=== PATIENT | female | born 1940 | race Caucasian/White ===

== ENCOUNTER 2023-07-07 00:38 | Day surgery (SDC) | payer MEDICARE, OTHER, SELFPAY ==
--- NOTE | 2023-07-05 15:43 | PC.NURSE ---
Report to the Outpatient Waiting Room, entrance under the green pavilion located off [facility], at time __0830 on date __07/07/23 . Planned Procedure Time: ___1030 . Time changes happen often and if your time is changed the preop area will call you the afternoon before. - You and your visitor will be asked to self-screen and do not enter if you have any COVID symptoms. - A mask is optional within the hospital at this time. Patients may have clear liquids (water, carbonated beverages, clear teas, apple juice) until 3 hours prior to surgery( 7:30 AM ) with a maximum of 20 ounces. - No food from midnight until time of surgery - Infants may have breast milk until 4 hours before surgery, infant formula 6 hours prior to surgery. - Children will be allowed to drink immediately following surgery. If applicable, please bring a bottle or sippy cup to assist with drinking. Juice, water, soda, and popsicles are readily available. For infants on formula, please bring formula the day of surgery. Pacifiers are allowed. Take the following medications with a SIP of water the morning of surgery: ___NONE DO NOT STOP ANY OF YOUR OTHER PRESCRIPTION MEDICATIONS PRIOR TO SURGERY ?EXCEPT THE FOLLOWING Medications to discontinue per physician ALL VITAMINS AND SUPPLEMENTS 3 DAYS PRE OP.STATES LAST DOSE 07/06/23 Please no make-up, nail german, hairspray, perfume, deodorant, or body powder the day of surgery. No jewelry (including any body piercings) or valuables the day of surgery, leave them at home. Please take a shower or bath the night before, or the morning of, surgery with an antibacterial soap. Wear comfortable, loose fitting clothing. Children are encouraged to wear pajamas. - Jewelry must be removed prior to entering the operating room. Rings and piercings that are not removed may be cut off. - The hospital will not accept responsibility for valuables. - Please leave all valuables, including medications, at home the day of surgery. If you are going home after surgery, a licensed truck driver teamster must drive you home. - NO public transportation without another adult if you receive anesthesia. - We recommend that an adult stay with you for 24 hours following discharge. - We also recommend that you do not drive, make important decision, drink alcoholic beverages, or take any drugs that were not prescribed by your health care provider for at least 24 hours after your discharge time. For Pediatric surgeries, we recommend two adults accompany the child home. Follow any additional instructions given to you from your surgeon. If you or anyone in your household have experienced Covid symptoms in the past week, please notify your surgeon or the nurse liaison at the phone number below for possible testing. Telephone instructions given to ____PATIENT and asked if any additional questions and then verbalized understanding. Patient advised to call surgeon office or pre surgery nurse liaison [phone] if any additional questions.
[2023-07-05 16:04] VITALS: BMI 27.4
--- NOTE | 2023-07-06 07:53 | PM.IMHP ---
H&P: HPI History of Present Illness Date/Time: 07/06/23 07:53 Chief Complaint: inability to extract pessary Narrative: 82-year-old pessary in place. Is unable to removed in the office. I will sedate her and remove Review of Systems Review of Systems: All systems reviewed & are unremarkable except as noted in HPI and below PMFSH Social History Social History Smoking status: Never smoker Living arrangements: alone Spiritual care concerns: No Meds Home Medications and Allergies Home Medications Medication Instructions Recorded Confirmed Type atorvastatin 20 mg tablet 20 mg PO DAILY 07/05/23 07/05/23 History cholecalciferol (vitamin D3) 25 25 mcg PO DAILY 07/05/23 07/05/23 History mcg (1,000 unit) tablet cyanocobalamin (vitamin B-12) 1,000 mcg PO DAILY 07/05/23 07/05/23 History 1,000 mcg tablet magnesium 250 mg tablet 250 mg PO DAILY 07/05/23 07/05/23 History omega-3 fatty acids 1,000 mg PO DAILY 07/05/23 07/05/23 History pantoprazole 40 mg tablet,delayed 40 mg PO DAILY 07/05/23 07/05/23 History release Allergies Allergy/AdvReac Type Severity Reaction Status Date / Time meperidine [From Demerol] AdvReac Nausea and Verified 07/05/23 15:34 Vomiting Exam Narrative: no acute distress normal breathing Assessment and Plan Assessment and plan (1) Foreign body in vagina: Code(s): T19.2XXA - Foreign body in vulva and vagina, initial encounter Status: Acute Assessment and Plan: will plan on extraction of pessary under sedation.
--- NOTE | 2023-07-07 07:11 | WPDHPUPDATE1 ---
History and Physical Update Update Date/Time: 07/07/23 07:11 History and Physical has been reviewed, including an updated exam of the patient. There are NO changes in the patient's condition. Risks, benefits, and alternatives have been discussed and questions answered. Patient agrees to proceed with procedure.
[2023-07-07 08:59] VITALS: BP 150/81; PULSE 94; RESP 16; TEMP 37; O2SAT 100
[2023-07-07] MEDS: LACTATED RINGERS 1,000 ML 30 ML IV CONT (09:17)
--- NOTE | 2023-07-07 09:50 | P.PNAN_ITS ---
Anes - Initial Pre Proc Eval Procedure: Operation Date: 07/07/23 10:30 Proposed Procedures p Pessary Removal - Geoff Barillas MD Date/Time: 07/07/23 09:50 Surgeon: Geoff Barillas MD Pre Op Diagnosis: Rectocele Patient Data Age: 82 Gender: F Height: 1.63 m Weight: 74.2 kg Last Vital Signs Temp 37.0 C 07/07/23 08:59 Pulse 94 07/07/23 08:59 Resp 16 07/07/23 08:59 BP 150/81 H 07/07/23 08:59 Pulse Ox 100 07/07/23 08:59 O2 Del Method Room Air 07/07/23 08:59 Allergies Allergy/AdvReac Type Severity Reaction Status Date / Time meperidine [From Demerol] AdvReac Nausea and Verified 07/07/23 08:51 Vomiting Home Medications Medication Instructions Recorded Confirmed Type atorvastatin 20 mg tablet 20 mg PO DAILY 07/05/23 07/05/23 History cholecalciferol (vitamin D3) 25 25 mcg PO DAILY 07/05/23 07/05/23 History mcg (1,000 unit) tablet cyanocobalamin (vitamin B-12) 1,000 mcg PO DAILY 07/05/23 07/05/23 History 1,000 mcg tablet magnesium 250 mg tablet 250 mg PO DAILY 07/05/23 07/05/23 History omega-3 fatty acids 1,000 mg PO DAILY 07/05/23 07/05/23 History pantoprazole 40 mg tablet,delayed 40 mg PO DAILY 07/05/23 07/05/23 History release Patient hx anesthesia problems: none Family hx anesthesia problems: none Results Review: All pre-operative results and documents have been reviewed as part of the pre- operative evaluation. [facility] Social History Social History Smoking status: Never smoker Living arrangements: alone Spiritual care concerns: No Anes - Eval Final PreProcedure Day of Procedure 07/07/23 09:50 Patient weight: overweight Heart: regular rate and rhythm Lungs: clear to auscultation Airway: Mallampati scale class II Neurological: alert and oriented Last oral intake: >/= 8 hours ASA classification: II Emergent: no Anesthetic plan: proceed Anesthesia type and monitoring: general GIVS and standard monitoring Results Review: All pre-operative results and documents have been reviewed as part of the pre- operative evaluation. Informed Consent: The patient's anesthetic plan and its attendant risks and benefits were discussed with the patient/family/POA. Questions were solicited and answers provided to the satisfaction of the patient/family/POA.
[2023-07-07 10:38] VITALS: BP 120/53; PULSE 84; RESP 16; O2SAT 96
--- NOTE | 2023-07-07 10:42 | P.OP_ITS ---
Procedure Note - Detailed Date of Procedure 07/07/23 Pre-op Diagnosis Rectocele Retained vaginal pessary Post-op Diagnosis Same Procedure Performed Exam under anesthesia Removal of vaginal foreign body Surgeon Geoff Barillas MD Anesthesia MAC Indications This will vaginal pessary device. She has had for several years. She does routine maintenance in the office. At last visit it was unable be removed. We plan on removing it in the operating room. She would like to keep it out Description of Procedure She was correctly identified. Informed consent obtained. She from the operating room. She was given MAC anesthesia. She was placed in dorsal lithot sonali position. She was prepped draped sterile fashion. Time-out performed. I grafts the knob of her Gellhorn pessary the macula gland. There was an annular ring in the mid vagina holding the pessary in place. I was able to break the seal and get my finger behind the pessary and extracted. I then examined the vaginal mucosa. There was quite a bit of granulation tissue at the apex of the vagina. She had moderate cystocele and more significant rectocele. There was no rent or violation of the vagina. Just granulation tissue. There was no significant bleeding. The pessary was left out. She was awakened transferred to PACU in stable condition. Estimated Blood Loss 1 Packing No Complications No immediate complications Condition Stable
[2023-07-07 11:05] VITALS: BP 134/84; PULSE 86; RESP 16
== END 2023-07-07 11:35 | disposition home or self-care (01) ==
PROVIDERS: PCP Internal Medicine; Visit Provider Urology
PROC: 0TJB8ZZ Inspection of Bladder, Via Natural or Artificial Opening Endoscopic (ICD-10-PCS; CPT 52000; principal; 2023-07-07 10:30)
DX: Z46.6 Encounter for fitting and adjustment of urinary device (principal); N81.6 Rectocele; N81.10 Cystocele, unspecified
CPT/HCPCS: 58999; J2704; J7120